=== PATIENT | female | born 1960 | race Two or more races ===

== ENCOUNTER 2023-01-15 11:15 | Emergency (ER) | payer OTHER ==
[~2023-01-15] VITALS: Ht 152.4 cm; Wt 52.2 kg
[2023-01-15] MEDS ORDERED: PRAVASTATIN SOD20 MG (12:21)
== END 2023-01-15 16:29 ==
LOC: ER 11:15
DX: U07.1 COVID-19 (principal); E78.00 Pure hypercholesterolemia, unspecified; Z91.013 Allergy to seafood; K29.70 Gastritis, unspecified, without bleeding; E78.49 Other hyperlipidemia; K57.30 Diverticulosis of large intestine without perforation or abscess without bleeding